=== PATIENT | female | born 1995 | race Caucasian/White ===

== ENCOUNTER 2018-12-24 11:18 | Emergency (ER) | payer OTHER ==
[~2018-12-24] VITALS: Ht 156.2 cm; Wt 65.3 kg
--- NOTE | 2018-12-24 11:26 | NUR ---
PATIENT AMBULATED TO BED 4 AT THIS TIME.
[2018-12-24 11:30] VITALS: BP 133/92
--- NOTE | 2018-12-24 11:45 | NUR ---
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 PAIN IS 8/10, THROBBING, SHOOTING WITH TINGLING SENSATION. PAIN GETTING WORSE IN THE PAST 2 DAYS. PT DENIES INJURY BUT STATES SHE HAS BEEN MOVING HEAVY THINGS AND FEELS LIKE SHE MAY HAVE PULLED MUSCLE IN THE LT LOWER BACK. OCCASIONAL RT BACK PAIN WELL. HX SCOLIOSIS. DENIES UTI SYMPTOMS. TOOK IBUPROFEN AT HOME TO MILD RELIEF. VSS. HX- SCOLIOSIS
[2018-12-24] MEDS ORDERED: KETOROLAC 60 MG/2 ML VIAL IM ONE (12:10)
--- NOTE | 2018-12-24 12:34 | NUR ---
PT BACK FROM XRAY
--- NOTE | 2018-12-24 12:53 | NUR ---
DR. ARMAS SPEAKING WITH PT AT BEDSIDE.
[2018-12-24 13:18] VITALS: BP 121/82
--- NOTE | 2018-12-24 13:18 | NUR ---
Patient discharged with v/s stable. Written and verbal after care instructions given and explained. Patient alert, oriented and verbalized understanding of instructions. Ambulatory with steady gait. All questions addressed prior to discharge. ID band removed. Patient advised to follow up with PMD. Rx of MOTRIN AND ROBAXIN given. Patient educated on indication of medication including possible reaction and side effects. Opportunity to ask questions provided and answered.
== END 2018-12-24 13:18 | disposition home or self-care (01) ==
LOC: MED 11:18
DX: S39.012A Strain of muscle, fascia and tendon of lower back, initial encounter (principal); X58.XXXA Exposure to other specified factors, initial encounter; Y93.89 Activity, other specified; Y92.89 Other specified places as the place of occurrence of the external cause; Y99.8 Other external cause status
CPT/HCPCS: 72080; 81002; 81025; 96372; 99283; J1885

== ENCOUNTER 2019-05-19 09:20 | Emergency (ER) | payer OTHER ==
[~2019-05-19] VITALS: Ht 152.4 cm; Wt 61.7 kg
[2019-05-19 09:32] VITALS: BP 117/71
--- NOTE | 2019-05-19 09:32 | NUR ---
TO ED 05, AMBULATORY.
[2019-05-19] MEDS ORDERED: ACETAMINOPHEN EXTRA STRENGTH 500 MG TAB PO ONE (09:35)
[2019-05-19 10:32] VITALS: BP 102/67
[2019-05-19 10:34] LABS: APPEARANCE,URINE CLEAR (CLEAR); BILIRUBIN,URINE NEGATIVE (NEGATIVE); BLOOD, URINE NEGATIVE (NEGATIVE); COLOR,URINE YELLOW (YELLOW); LEUKOCYTE ESTERASE ,URINE NEGATIVE (NEGATIVE); NITRITE, URINE NEGATIVE (NEGATIVE); PH,URINE 7.5 (5.0-9.0); UGLUCOSE NEGATIVE (NEGATIVE)
--- NOTE | 2019-05-19 10:53 | NUR ---
Stable. VSS. Afebrile now. States that she feels much better. MD has reassessed and dc'd home. To exit.
== END 2019-05-19 10:53 | disposition home or self-care (01) ==
LOC: MED 09:20
DX: J11.1 Influenza due to unidentified influenza virus with other respiratory manifestations (principal); M54.9 Dorsalgia, unspecified
CPT/HCPCS: 71045; 81003; 81025; 87804; 99284; Q0092

== ENCOUNTER 2019-10-01 17:32 | Emergency (ER) | payer OTHER ==
[~2019-10-01] VITALS: Ht 152.4 cm; Wt 59.0 kg
[2019-10-01 17:55] VITALS: BP 121/79
[2019-10-01 19:34] VITALS: BP 118/82
== END 2019-10-01 19:30 | disposition home or self-care (01) ==
LOC: MED 17:32
DX: H61.23 Impacted cerumen, bilateral (principal)
CPT/HCPCS: 99281

== ENCOUNTER 2019-10-03 15:57 | Emergency (ER) | payer OTHER ==
[~2019-10-03] VITALS: Ht 152.4 cm; Wt 59.0 kg
[2019-10-03 16:15] VITALS: BP 120/88
[2019-10-03] MEDS ORDERED: diphenhydrAMINE 50 MG/ML VIAL IVP ONE (17:20)
[2019-10-03] MEDS ORDERED: NACL 0.9% 1,000 ML IV ONE (17:20)
[2019-10-03] MEDS ORDERED: KETOROLAC 30 MG/ML VIAL IVP ONE (17:20)
[2019-10-03] MEDS ORDERED: PROCHLORPERAZINE 10 MG/2 ML VIAL IVP ONE (17:20)
[2019-10-03 17:41] LABS: BASOPHILS # (AUTO) 0.1 K/uL (0.00-0.22); BASOPHILS % (AUTO) 0.5 % (0.0-2.0); EOSINOPHILS # (AUTO) 0.1 K/uL (0-0.4); EOSINOPHILS % (AUTO) 1.1 % (0.0-4.0); HEMATOCRIT 38.5 % (36-48); HEMOGLOBIN 12.8 g/dL (12.0-16.0); LYMPHOCYTES # (AUTO) 2.6 K/uL (2.5-16.5); LYMPHOCYTES % (AUTO) 27.2 % (20.5-51.1); MEAN CORPUSCULAR HEMOGLOBIN 30 pg (27-31); MEAN CORPUSCULAR HGB CONC 33 g/dL (33-37); MEAN CORPUSCULAR VOLUME 91.7 fL (80-94); MONOCYTES # (AUTO) 0.8 K/uL (0.8-1.0); MONOCYTES % (AUTO) 8.7 % (1.7-9.3); NEUTROPHILS % (AUTO) 62.5 % (42.2-75.2); PLATELET COUNT (AUTO) 361 K/uL (140-450); RED CELL DISTRIBUTION WIDTH 12.7 % (11.6-13.7); WHITE BLOOD COUNT (AUTO) 9.6 K/uL (4.8-10.8)
[2019-10-03 17:52] LABS: ANION GAP 10.3 (8-16); CARBON DIOXIDE 29.5 mmol/L (21-32); CREATININE 0.9 mg/dL (0.6-1.3); POTASSIUM 3.8 mmol/L (3.5-5.1)
[2019-10-03 19:15] VITALS: BP 107/67
== END 2019-10-03 19:15 | disposition home or self-care (01) ==
LOC: MED 15:57
DX: R42 Dizziness and giddiness (principal); R51 Headache; R11.2 Nausea with vomiting, unspecified
CPT/HCPCS: 36415; 70470; 80048; 81025; 85025; 96361; 96374; 96375; 99284; J0780; J1200; J1885; J7030; Q9967

== ENCOUNTER 2019-12-14 11:42 | Emergency (ER) | payer OTHER ==
[~2019-12-14] VITALS: Ht 154.9 cm; Wt 66.7 kg
[2019-12-14 11:46] VITALS: BP 144/94
--- NOTE | 2019-12-14 11:50 | NUR ---
PT C/O FATIGUE, COUGH, HEADACHE X 3 DAYS. STATES " I HAVE BEEN UNDER A LOT OF STRESS LATELY, AND I HAVE NOT SLEPT THAT MUCH." DENIES N/V/D. DENIES ANY OTHER S/SX. AWAITING MSE. MEDHX: SCOLIOSIS, VERTIGO
--- NOTE | 2019-12-14 12:20 | NUR ---
C/O FATIGUE, NON-PRODUCTIVE COUGH, BODY ACHES, SORE THROAT, AND H/A X 3 DAYS. RR EVEN AND UNLABORED. DENIES SOB. PT STATES SHE TOOK NYQUIL WITH SOME RELIEF. REPORTS DECREASED APPETITE BUT NO VOMITING. DENIES FEVER OR CHILLS. DENIES DIARRHEA OR AB PAIN. PT ALERT AND AWAKE. VS STABLE. PMH- DENIES
--- NOTE | 2019-12-14 12:34 | NUR ---
XRAY AT BEDSIDE
== END 2019-12-14 13:00 | disposition home or self-care (01) ==
LOC: MED 11:42
DX: B34.9 Viral infection, unspecified (principal)
CPT/HCPCS: 71045; 99283

== ENCOUNTER 2020-03-05 10:10 | Emergency (ER) | payer OTHER, SELFPAY ==
[~2020-03-05] VITALS: Ht 160 cm; Wt 66.2 kg
[2020-03-05 10:30] VITALS: BP 119/86
--- NOTE | 2020-03-05 10:37 | NUR ---
Pt c/o sob since today, + covid contact. denies medical hx
--- NOTE | 2020-03-05 11:04 | NUR ---
Dr. Lay is evaluating the patient in the OF tent.
--- NOTE | 2020-03-05 11:07 | NUR ---
COVID SWAB SENT TO LAB.
[2020-03-05 11:32] VITALS: BP 119/86
--- NOTE | 2020-03-05 11:32 | NUR ---
Patient discharged with v/s stable. Written and verbal after care instructions given and explained. Patient verbalized understanding. Ambulatory with steady gait. All questions addressed prior to discharge. Advised to follow up with PMD.
== END 2020-03-05 11:32 | disposition home or self-care (01) ==
LOC: MED 10:10
DX: R06.02 Shortness of breath (principal); Z20.828 Contact with and (suspected) exposure to other viral communicable diseases
CPT/HCPCS: 99283; U0003

== ENCOUNTER 2020-04-12 12:07 | Emergency (ER) | payer OTHER, SELFPAY ==
[~2020-04-12] VITALS: Ht 152.4 cm; Wt 66.2 kg
[2020-04-12 12:21] VITALS: BP 120/79
--- NOTE | 2020-04-12 12:24 | NUR ---
24 Y/O FEMALE C/O NAUSEA, DIARRHEA, URINARY FREQUENCY, LOWER BACK& LOWER ABDOMINAL PAIN X 2 DAYS. DENIES FEVER/CHILLS. DENIES PMH NKA
--- NOTE | 2020-04-12 12:29 | NUR ---
Hill jennings in ED - 04/12/20 at 1234 by MMTHEM Jose Antonio ambulated to bed 11. RN evaluating patient at bedside.
--- NOTE | 2020-04-12 12:30 | NUR ---
Patient ambulated to [facility]. RN evaluating patient.
[2020-04-12] MEDS ORDERED: NACL 0.9% 1,000 ML IV ONE (12:40)
--- NOTE | 2020-04-12 12:40 | NUR ---
Dr. Barrett is evaluating the patient.
[2020-04-12] MEDS ORDERED: ONDANSETRON 4 MG ODT PO ONE (12:45)
[2020-04-12] MEDS ORDERED: KETOROLAC 60 MG/2 ML VIAL IM ONE (12:45)
[2020-04-12 13:08] VITALS: BP 120/79
--- NOTE | 2020-04-12 13:09 | NUR ---
Patient discharged with v/s stable. Written and verbal after care instructions given and explained. Patient alert, oriented and verbalized understanding of instructions. Ambulatory with steady gait. All questions addressed prior to discharge. ID band removed. Patient advised to follow up with PMD. Rx of zofran 8mg PO q8h PRN, and motrin 800mg TID PO given. Patient educated on indication of medication including possible reaction and side effects. Opportunity to ask questions provided and answered.
== END 2020-04-12 13:09 | disposition home or self-care (01) ==
LOC: MED 12:07
DX: R10.31 Right lower quadrant pain (principal); R11.0 Nausea
CPT/HCPCS: 81002; 81025; 96372; 99283; J1885; Q0162

== ENCOUNTER 2020-09-24 10:12 | Emergency (ER) | payer OTHER ==
[~2020-09-24] VITALS: Ht 152.4 cm; Wt 66.7 kg
[2020-09-24 10:18] VITALS: BP 122/88
--- NOTE | 2020-09-24 10:18 | NUR ---
PT AMBULATED TO BED 8
--- NOTE | 2020-09-24 10:30 | NUR ---
25 Y/O FEMALE C/O INTERMITTENT ABDOMINAL PAIN X2 MONTHS. PT STATES THE PAIN INCREASES AFTER EATING AND DURING MENSTRUAL CYCLE. +N -V/D. ABD IS FLAT, SOFT, AND TENDER ON PALPATION WITH ACTIVE BOWEL SOUNDS X4 QUADS. PT RATES PAIN 2/10 THAT SHE DESCRIBES CRAMPING AND RADIATES FROM TOP ABD TO LOWER ABD. RECOVING SUBSTANCE ABUSER- OPIATES. X3 YRS SOBER. PT A/O X4 WITH EVEN AND UNLABORED RESPIRATIONS. PT IN GOWN. PMH:DENIES NKDA
--- NOTE | 2020-09-24 10:33 | NUR ---
DR BEATTY AT BEDSIDE EVALUATING PT
[2020-09-24] MEDS ORDERED: DICYCLOMINE HCL LIQUID 20 MG, ALUMINUM HYD/MAG/SIMETHICONE 30 ML, LIDOCAINE VISCOUS 2% ... PO ONE ×3 (10:45)
[2020-09-24] MEDS ORDERED: LIDOCAINE VISCOUS 2% 20 ML UDC ONE (10:48)
[2020-09-24] MEDS ORDERED: ALUMINUM HYD/MAG/SIMETHICONE 30 ML UDC ONE ×2 (10:49)
[2020-09-24] MEDS ORDERED: DICYCLOMINE HCL LIQUID 10 MG/5 ML UDC ONE (10:49)
[2020-09-24 10:56] LABS: BASOPHILS # (AUTO) 0.1 K/uL (0.00-0.22); BASOPHILS % (AUTO) 0.6 % (0.0-2.0); EOSINOPHILS # (AUTO) 0.1 K/uL (0-0.4); EOSINOPHILS % (AUTO) 0.7 % (0.0-4.0); HEMATOCRIT 35.8 % (36-48); HEMOGLOBIN 11.8 g/dL (12.0-16.0); LYMPHOCYTES # (AUTO) 2.4 K/uL (2.5-16.5); LYMPHOCYTES % (AUTO) 25.2 % (20.5-51.1); MEAN CORPUSCULAR HEMOGLOBIN 30 pg (27-31); MEAN CORPUSCULAR HGB CONC 33 g/dL (33-37); MEAN CORPUSCULAR VOLUME 89.4 fL (80-94); MONOCYTES # (AUTO) 0.8 K/uL (0.8-1.0); MONOCYTES % (AUTO) 8.1 % (1.7-9.3); NEUTROPHILS # (AUTO) 6.2 K/uL (1.8-7.7); NEUTROPHILS % (AUTO) 65.4 % (42.2-75.2); PLATELET COUNT (AUTO) 380 K/uL (140-450); RED CELL DISTRIBUTION WIDTH 14.2 % (11.6-13.7); WHITE BLOOD COUNT (AUTO) 9.4 K/uL (4.8-10.8)
[2020-09-24 11:01] LABS: APPEARANCE,URINE CLEAR (CLEAR); BILIRUBIN,URINE NEGATIVE (NEGATIVE); BLOOD, URINE NEGATIVE (NEGATIVE); COLOR,URINE YELLOW (YELLOW); LEUKOCYTE ESTERASE ,URINE NEGATIVE (NEGATIVE); NITRITE, URINE NEGATIVE (NEGATIVE); UGLUCOSE NEGATIVE (NEGATIVE)
[2020-09-24 11:12] LABS: ALBUMIN 3.6 g/dL (3.4-5.0); ANION GAP 18.7 (8-16); CARBON DIOXIDE 23.4 mmol/L (21-32); CREATININE 0.6 mg/dL (0.6-1.3); POTASSIUM 4.1 mmol/L (3.5-5.1); TOTAL BILIRUBIN 0.3 mg/dL (0.0-1.0)
[2020-09-24 11:14] LABS: RBC,URINE 0-5 /HPF (0-5); WBC,URINE 0-5 /HPF (0-5)
--- NOTE | 2020-09-24 11:45 | NUR ---
PT RESTING IN BED WITH EVEN AND UNLABORED RESPIRATIONS. PT DENIES ANY PAIN AT THIS TIME. DR BEATTY MADE AWARE
--- NOTE | 2020-09-24 11:55 | NUR ---
DR BEATTY AT BEDSIDE FOR US.
[2020-09-24] MEDS ORDERED: MAG-27 PO (12:11)
[2020-09-24] MEDS ORDERED: OMEP20TC12 PO (12:11)
[2020-09-24 12:30] VITALS: BP 122/88
--- NOTE | 2020-09-24 12:30 | NUR ---
Patient discharged with v/s stable. Written and verbal after care instructions ABOUT GASTRITIS AND ABDOMINAL PAIN given and explained. Patient alert, oriented and verbalized understanding of instructions. Ambulatory with steady gait. All questions addressed prior to discharge. ID band removed. Patient advised to follow up with PMD. Rx of MYLANTA MAXIMUM STRENGTH AND OMEPRAZOLE given. Patient educated on indication of medication including possible reaction and side effects. Opportunity to ask questions provided and answered.
== END 2020-09-24 12:30 | disposition home or self-care (01) ==
LOC: MED 10:12
DX: R10.10 Upper abdominal pain, unspecified (principal); Z79.899 Other long term (current) drug therapy
CPT/HCPCS: 36415; 80053; 81001; 81002; 81025; 83690; 85025; 99284

== ENCOUNTER 2021-03-13 09:15 | Emergency (ER) | payer OTHER ==
[~2021-03-13] VITALS: Ht 152.4 cm; Wt 69.9 kg
[~2021-03-13 09:15] MED LIST: MAG-27 PO; OMEP-278 PO
[2021-03-13 09:16] VITALS: BP 135/76
--- NOTE | 2021-03-13 09:43 | NUR ---
pt c/o dizziness, headache, nausea intermittently x2 weeks. pt c/o nausea and headache at this time.
--- NOTE | 2021-03-13 09:47 | NUR ---
DR SAMPSON AT BEDSIDE SPEAKING TO PT
[2021-03-13] MEDS ORDERED: IBUP-2213 PO (09:55)
--- NOTE | 2021-03-13 09:56 | NUR ---
HCG NEGATIVE. UA COLLECTED AND SENT TO LAB.
[2021-03-13 10:57] VITALS: BP 111/74
[2021-03-13 11:32] LABS: APPEARANCE,URINE CLEAR (CLEAR); BILIRUBIN,URINE NEGATIVE (NEGATIVE); BLOOD, URINE NEGATIVE (NEGATIVE); COLOR,URINE YELLOW (YELLOW); LEUKOCYTE ESTERASE ,URINE NEGATIVE (NEGATIVE); NITRITE, URINE NEGATIVE (NEGATIVE); UGLUCOSE NEGATIVE (NEGATIVE)
== END 2021-03-13 10:57 | disposition home or self-care (01) ==
LOC: MED 09:15
DX: R51.9 Headache, unspecified (principal); R42 Dizziness and giddiness
CPT/HCPCS: 81003; 81025; 99283

== ENCOUNTER 2021-08-22 08:13 | Emergency (ER) | payer MEDICAID, OTHER ==
[~2021-08-22] VITALS: Ht 152.4 cm; Wt 74.8 kg
[~2021-08-22 08:13] MED LIST changes: +IBUP-2213 PO
[2021-08-22 08:18] VITALS: BP 104/83
--- NOTE | 2021-08-22 08:18 | NUR ---
dany and flu swabbed, left with lab phleb álvaro at this time
--- NOTE | 2021-08-22 08:27 | NUR ---
Patient ambulated with steady gait to bed 2
--- NOTE | 2021-08-22 08:31 | NUR ---
26 y/o female, c/o sore throat, body aches, caban, chills, "I just don't feel good" started last night. denies nausea, vomiting, diarrhea. skin is pink/warm/dry. a&o x4 with even and steady gait. lungs clear bl, heart rate even and regular. denies anyone sick in the household with the same symptoms. pt denies any fever, cp, sob, or cough at this time. pt states pain is 5/10 at this time. vss. patient positioned for comfort. hob elevated. bed down. ermd made aware of pt. pmh: scoliosis nka med: denies
[2021-08-22] MEDS ORDERED: NAPR-54 PO (09:28)
[2021-08-22] MEDS ORDERED: FLONAS NS (09:28)
--- NOTE | 2021-08-22 09:36 | NUR ---
Patient discharged with v/s stable. Written and verbal after care instructions ABOUT UPPER RESPIRATORY INFECTION given and explained. Patient alert, oriented and verbalized understanding of instructions. Ambulatory with steady gait. All questions addressed prior to discharge. ID band removed. Patient advised to follow up with PMD. Rx of NAPROXEN AND FLONASE NASAL given. Patient educated on indication of medication including possible reaction and side effects. Opportunity to ask questions provided and answered.
== END 2021-08-22 09:36 | disposition home or self-care (01) ==
LOC: MED 08:13
DX: J06.9 Acute upper respiratory infection, unspecified (principal); Z20.822 Contact with and (suspected) exposure to COVID-19; Z79.899 Other long term (current) drug therapy
CPT/HCPCS: 99283

== ENCOUNTER 2022-11-15 16:17 | Emergency (ER) | payer MEDICAID, OTHER ==
[~2022-11-15] VITALS: Ht 152.4 cm; Wt 76.7 kg
[~2022-11-15 16:17] MED LIST changes: +FLONAS NS; +NAPR-54 PO
[2022-11-15 16:37] VITALS: BP 134/92; PULSE 71; RESP 20; TEMP 97.5; O2SAT 99
[2022-11-15] MEDS ORDERED: KETOROLAC 30 MG/ML VIAL IM ONE (17:00)
[2022-11-15] MEDS ORDERED: ONDANSETRON 4 MG ODT PO ONE (17:10)
[2022-11-15] MEDS ORDERED: IBUP-2213 PO ×2 (18:12→18:41)
[2022-11-15] MEDS ORDERED: ACET-10509 PO (18:12)
[2022-11-15] MEDS ORDERED: KETOROLAC 30 MG/ML VIAL ONE (18:26)
[2022-11-15] MEDS ORDERED: ONDANSETRON 4 MG ODT ONE (18:26)
[2022-11-15] MEDS ORDERED: ONDA-188 SL (18:38)
[2022-11-15 20:16] VITALS: BP 122/81; PULSE 68; RESP 16; TEMP 97.5; O2SAT 99
--- NOTE | 2022-11-15 20:16 | NUR ---
Patient discharged with v/s stable. Written and verbal after care instructions given and explained. Patient alert, oriented and verbalized understanding of instructions. Ambulatory with steady gait. All questions addressed prior to discharge. ID band removed. Patient advised to follow up with PMD. Rx of TYLENOL, MOTRIN given. Patient educated on indication of medication including possible reaction and side effects. Opportunity to ask questions provided and answered.
--- NOTE | 2022-11-15 21:29 | NUR ---
Note dinabeth in EDM - 11/15/22 at 2147 by [id number] Patient discharged with v/s stable. Written and verbal after care instructions given and explained. Patient alert, oriented and verbalized understanding of instructions. Wheel Chair Assisted with by caregiver. All questions addressed prior to discharge. ID band removed. Patient advised to follow up with PMD. Rx of MOTRIN given. Patient educated on indication of medication including possible reaction and side effects. Opportunity to ask questions provided and answered.
[2022-11-16] MEDS ORDERED: IBUP-2218 PO (13:43)
== END 2022-11-15 20:16 | disposition home or self-care (01) ==
LOC: MED 16:17
DX: N94.6 Dysmenorrhea, unspecified (principal); Z79.899 Other long term (current) drug therapy
CPT/HCPCS: 81002; 81025; 96372; 99283; J1885; Q0162

== ENCOUNTER 2023-02-09 02:25 | Emergency (ER) | payer OTHER ==
[~2023-02-09] VITALS: Ht 152.4 cm; Wt 73.5 kg
[~2023-02-09 02:25] MED LIST changes: +ACET-10509 PO; +IBUP-2218 PO; +ONDA-188 SL
[2023-02-09 02:30] VITALS: BP 138/98; PULSE 109; RESP 19; TEMP 97.6; O2SAT 99
[2023-02-09 02:51] VITALS: O2SAT 99
[2023-02-09] MEDS ORDERED: IBUP-2886 PO (03:57)
== END 2023-02-09 03:23 | disposition home or self-care (01) ==
LOC: MED 02:25
DX: R00.2 Palpitations (principal); R11.0 Nausea; Z79.899 Other long term (current) drug therapy
CPT/HCPCS: 93005; 99283

== ENCOUNTER 2023-10-19 09:51 | Emergency (ER) | payer OTHER ==
[~2023-10-19] VITALS: Ht 152.4 cm; Wt 72.6 kg
[~2023-10-19 09:51] MED LIST changes: +IBUP-2886 PO; +NAPR-337 PO; -NAPR-54 PO
[2023-10-19 10:28] VITALS: BP 126/91; PULSE 75; RESP 16; TEMP 98.2; O2SAT 98
[2023-10-19 11:32] LABS: BASOPHILS # (AUTO) 0.1 K/uL (0.00-0.22); BASOPHILS % (AUTO) 0.7 % (0.0-2.0); EOSINOPHILS # (AUTO) 0.1 K/uL (0-0.4); EOSINOPHILS % (AUTO) 0.9 % (0.0-4.0); HEMATOCRIT 41.5 % (36-48); HEMOGLOBIN 13.8 g/dL (12.0-16.0); LYMPHOCYTES # (AUTO) 2.9 K/uL (2.5-16.5); LYMPHOCYTES % (AUTO) 36.6 % (20.5-51.1); MEAN CORPUSCULAR HEMOGLOBIN 30 pg (27-31); MEAN CORPUSCULAR HGB CONC 33 g/dL (33-37); MEAN CORPUSCULAR VOLUME 88.7 fL (80-94); MONOCYTES # (AUTO) 0.6 K/uL (0.8-1.0); MONOCYTES % (AUTO) 7.4 % (1.7-9.3); NEUTROPHILS # (AUTO) 4.3 K/uL (1.8-7.7); NEUTROPHILS % (AUTO) 54.4 % (42.2-75.2); PLATELET COUNT (AUTO) 391 K/uL (140-450); RED BLOOD CELL COUNT(AUTO) 4.68 MIL/uL (4.20-5.40); RED CELL DISTRIBUTION WIDTH 13.1 % (11.6-13.7)
[2023-10-19 11:42] VITALS: O2SAT 98
[2023-10-19] MEDS: MECLIZINE 25 MG TAB PO ONE (11:48)
[2023-10-19] MEDS: METOCLOPRAMIDE 10 MG TAB PO ONE (11:48)
[2023-10-19] MEDS: ACETAMINOPHEN 325 MG TAB PO ONE (11:49)
[2023-10-19] MEDS: KETOROLAC 30 MG/ML VIAL IM ONE (11:50)
[2023-10-19 11:53] LABS: CALCIUM 9.9 mg/dL (8.5-10.1); CARBON DIOXIDE 27.4 mmol/L (21-32); CREATININE 0.8 mg/dL (0.6-1.3); POTASSIUM 4.4 mmol/L (3.5-5.1)
[2023-10-19 12:00] LABS: ALBUMIN 3.7 g/dL (3.4-5.0); BILIRUBIN,DIRECT 0.1 mg/dL (0.0-0.3); TOTAL BILIRUBIN 0.3 mg/dL (0.0-1.0)
[2023-10-19 12:18] VITALS: BP 121/87; PULSE 77; RESP 18; TEMP 98; O2SAT 98
[2023-10-19] MEDS ORDERED: FLONAS NS (12:43)
[2023-10-19] MEDS ORDERED: CETI-24 PO (12:43)
[2023-10-19] MEDS ORDERED: IBUP-2213 PO (12:43)
== END 2023-10-19 12:52 | disposition home or self-care (01) ==
LOC: MED 09:51
DX: R51.9 Headache, unspecified (principal); R42 Dizziness and giddiness; R11.0 Nausea; Z79.1 Long term (current) use of non-steroidal anti-inflammatories (NSAID); Z79.899 Other long term (current) drug therapy
CPT/HCPCS: 36415; 70450; 80048; 80076; 81025; 85025; 93005; 96372; 99285; J1885; J8597